=== PATIENT | female | born 1970 | race Caucasian/White ===

== ENCOUNTER → 2016-05-08 | Outpatient (REF) | payer OTHER | LOC: M SFHCPLAZ 13:40 | PROVIDERS: ATTEND Family Medicine | DX: E11.9 Type 2 diabetes mellitus without complications (principal); E78.5 Hyperlipidemia, unspecified; E55.9 Vitamin D deficiency, unspecified ==

== ENCOUNTER → 2016-07-06 | Outpatient (CLI) | payer OTHER ==
--- NOTE | 2016-07-06 14:53 | REP ---
CT RIGHT HIP: Axial CT images are performed of the right hip without IV contrast with sagittal and coronal reconstruction images. There is no acute fracture or dislocation. There is a small bone island in the right femoral head anteriorly. There is no avascular necrosis or other evidence of significant bone lesion. There is mild narrowing, spurring, and subchondral sclerosis and cystic change at the pubic symphysis. There is mild joint space narrowing, subchondral sclerosis, and spurring at the hip joint. There is a mildly enlarged right inguinal lymph node with a short-axis dimension of 1.2 cm. No other definite abnormality is seen. IMPRESSION: Mild degenerative changes pubic symphysis and right hip without evidence of fracture. Small bone island femoral head without other suspicious intrinsic osseous pathology. Mild enlarged right inguinal lymph node with short-axis dimension 1.2 cm. Signed by Vidal Huddleston MD 07/06/2016 08:34 P
== END ==
LOC: M RAD 13:08
PROVIDERS: ATTEND Family Medicine
DX: M16.11 Unilateral primary osteoarthritis, right hip (principal)

== ENCOUNTER → 2016-09-07 | Outpatient (CLI) | payer OTHER ==
--- NOTE | 2016-09-07 16:04 | REPMRS ---
Patient History The patient states she has not had a clinical breast exam in over a year. Patient is postmenopausal. Family history of breast cancer in 2 maternal cousins at age 50 or over. Digital Woman Screen Mammo: September 07, 2016 - Exam #: [id number] Bilateral CC and MLO view(s) were taken. Technologist: Nirmala Mckenna, Technologist Prior study comparison: November 12, 2014, digital woman screen mammo performed at [facility] to [facility]. October 23, 2013, digital woman screen mammo performed at [facility] to [facility]. FINDINGS: There are scattered fibroglandular densities. There has been no change in the appearance of the mammogram from the prior studies. There is a mild amount of residual fibroglandular tissue which is fairly symmetric. There is no interval development of dominant mass, architectural distortion, or clustered microcalcification suggestive of malignancy. ASSESSMENT: BI-RADS/ACR category 1 mammogram. Negative. Recommendation Routine screening mammogram in 1 year (for women over age 40). This mammogram was interpreted with the aid of an FDA-approved computer-aided dectection system. Electronically Signed By: Vidal Huddleston MD 09/07/16 [id number]
== END ==
LOC: M WHC 14:59
PROVIDERS: ATTEND Family Medicine
DX: Z12.31 Encounter for screening mammogram for malignant neoplasm of breast (principal)

== ENCOUNTER → 2016-09-10 | Outpatient (REF) | payer OTHER ==
[2016-09-10 12:30] LABS: ALBUMIN 3.6 GM/DL (3.2-5.2); ALBUMIN/GLOBULIN RATIO 0.92 (1.00-1.93); ALKALINE PHOSPHATASE 100 U/L (45-117); ALT/SGPT 49 U/L (12-78); ANION GAP 9 MEQ/L (8-16); AST/SGOT 26 U/L (15-37); BILIRUBIN,TOTAL 0.2 MG/DL (0.2-1.0); BLOOD UREA NITROGEN 16 MG/DL (7-18); CALCIUM LEVEL 8.9 MG/DL (8.5-10.1); CARBON DIOXIDE LEVEL 25 MEQ/L (21-32); CHLORIDE LEVEL 102 MEQ/L (98-107); CHOLESTEROL LEVEL 216 MG/DL (<200); CREATININE FOR GFR 0.81 MG/DL (0.55-1.02); GLOMERULAR FILTRATION RATE > 60.0 (>58); GLUCOSE, FASTING 280 MG/DL (70-105); POTASSIUM SERUM 4.3 MEQ/L (3.5-5.1); SODIUM LEVEL 136 MEQ/L (136-145); TOTAL PROTEIN 7.5 GM/DL (6.4-8.2); TRIGLYCERIDES LEVEL 527 MG/DL (<150)
== END ==
LOC: M SFHCPLAZ 08:48
PROVIDERS: ATTEND Family Medicine
DX: E78.5 Hyperlipidemia, unspecified (principal); E11.8 Type 2 diabetes mellitus with unspecified complications

== ENCOUNTER → 2016-12-31 | Outpatient (REF) | payer OTHER | LOC: M SFHCPLAZ 13:11 | PROVIDERS: ATTEND Family Medicine | DX: D72.829 Elevated white blood cell count, unspecified (principal); E11.8 Type 2 diabetes mellitus with unspecified complications ==

== ENCOUNTER → 2017-04-04 | Outpatient (REF) | payer OTHER ==
[2017-04-04 20:27] LABS: ALBUMIN 3.9 GM/DL (3.2-5.2); ALBUMIN/GLOBULIN RATIO 1.08 (1.00-1.93); ALKALINE PHOSPHATASE 104 U/L (45-117); ALT/SGPT 37 U/L (12-78); ANION GAP 6 MEQ/L (8-16); AST/SGOT 17 U/L (7-37); BILIRUBIN,TOTAL 0.2 MG/DL (0.2-1.0); BLOOD UREA NITROGEN 15 MG/DL (7-18); CALCIUM LEVEL 8.9 MG/DL (8.5-10.1); CARBON DIOXIDE LEVEL 28 MEQ/L (21-32); CHLORIDE LEVEL 106 MEQ/L (98-107); CHOLESTEROL LEVEL 238 MG/DL (<200); CREATININE FOR GFR 0.86 MG/DL (0.55-1.02); FERRITIN 94 NG/ML (8-252); GLOMERULAR FILTRATION RATE > 60.0 (>58); GLUCOSE, FASTING 125 MG/DL (70-105); PERCENT SATURATION 15.3 % (13.2-45.0); POTASSIUM SERUM 4.3 MEQ/L (3.5-5.1); SODIUM LEVEL 140 MEQ/L (136-145); TOTAL IRON BINDING CAPACITY 327 UG/DL (250-450); TOTAL PROTEIN 7.5 GM/DL (6.4-8.2); TRIGLYCERIDES LEVEL 269 MG/DL (<150)
[2017-04-05 11:32] LABS: PRETREATED FOLATE FOR RBCFOL 9.8 NG/ML
[2017-04-08 14:00] LABS: ALBUMIN 4.38 GM/DL (3.29-5.55); ALBUMIN % 58.4 % (55.8-66.1)
== END ==
LOC: M SFHCPLAZ 14:36
PROVIDERS: ATTEND Family Medicine
DX: E78.5 Hyperlipidemia, unspecified (principal); E11.8 Type 2 diabetes mellitus with unspecified complications; D72.829 Elevated white blood cell count, unspecified; E55.9 Vitamin D deficiency, unspecified; L92.1 Necrobiosis lipoidica, not elsewhere classified

== ENCOUNTER 2017-04-12 20:58 | Emergency (ER) | payer OTHER ==
[~2017-04-12] VITALS: Ht 177.8 cm; Wt 90.0 kg
[2017-04-12] MEDS ORDERED: TOUJ1.2I (21:07)
[2017-04-12] MEDS ORDERED: CELE1CAP9 (21:07)
[2017-04-12] MEDS ORDERED: METF500T4 (21:07)
[2017-04-12] MEDS ORDERED: TANZ1INJ2 (21:07)
[2017-04-12] MEDS ORDERED: TRAM50TA2 (21:07)
[2017-04-12] MEDS ORDERED: traMADol 50 MG TAB PO ONE (21:15)
[2017-04-12 22:36] VITALS: BP 137/72
--- NOTE | 2017-04-13 12:05 | REP ---
REASON: Trauma. COMPARISON: None. AP and lateral views of the forearm show a radial head fracture. IMPRESSION: Radial head fracture. Signed by Travis Flores DO 04/13/2017 08:53 A
--- NOTE | 2017-04-13 12:05 | REP ---
REASON: Trauma. There is a radial head fracture and a joint effusion. The radial head fracture is intra-articular. IMPRESSION: Radial head fracture and joint effusion as described above. Signed by Travis Flores DO 04/13/2017 08:54 A
--- NOTE | 2017-04-13 12:05 | REP ---
REASON: Trauma. COMPARISON: None. Two views were obtained. FINDINGS: No acute fracture or destructive osseous lesion. Please see the elbow report. Signed by Travis Flores DO 04/13/2017 08:54 A
== END 2017-04-12 22:37 | disposition home or self-care (01) ==
LOC: M ED 20:58
DX: S40.021A Contusion of right upper arm, initial encounter (principal); S50.11XA Contusion of right forearm, initial encounter; S60.211A Contusion of right wrist, initial encounter; W19.XXXA Unspecified fall, initial encounter; Y92.481 Parking lot as the place of occurrence of the external cause; Y93.01 Activity, walking, marching and hiking; Y99.8 Other external cause status; E11.9 Type 2 diabetes mellitus without complications; Z88.8 Allergy status to other drugs, medicaments and biological substances; Z79.4 Long term (current) use of insulin

== ENCOUNTER → 2017-07-12 | Outpatient (REF) | payer OTHER ==
[2017-07-12 15:43] LABS: HEMATOCRIT 43.2 % (36.0-47.0); HEMOGLOBIN 14.4 g/dl (12.0-16.0); MEAN CORPUSCULAR HEMOGLOBIN 29.3 pg (27.0-33.0); MEAN CORPUSCULAR HGB CONC 33.3 g/dl (32.0-36.5); PLATELET COUNT, AUTOMATED 363 10^3/uL (150-450); RED BLOOD COUNT 4.91 10^6/uL (4.00-5.40); RED CELL DISTRIBUTION WIDTH 13.2 % (11.5-14.5)
[2017-07-12 15:44] LABS: ADD MANUAL DIFFER YES; DIFF SLIDE NUMBER 236; POSITIVE DIFF POS FLAG; POSITIVE MORPH POS FLAG; WHITE BLOOD COUNT 19.9 10^3/uL (4.0-10.0)
[2017-07-12 15:55] LABS: INR 0.94; PROTHROMBIN TIME 12.6 SECONDS (12.4-14.5)
[2017-07-12 15:56] LABS: PARTIAL THROMBOPLASTIN TIME 33.5 SECONDS (26.8-37.9)
[2017-07-12 16:07] LABS: ALBUMIN 4.4 GM/DL (3.2-5.2); ALBUMIN/GLOBULIN RATIO 1.26 (1.00-1.93); ALKALINE PHOSPHATASE 102 U/L (45-117); ALT/SGPT 43 U/L (12-78); ANION GAP 8 MEQ/L (8-16); AST/SGOT 19 U/L (7-37); BILIRUBIN,TOTAL 0.3 MG/DL (0.2-1.0); BLOOD UREA NITROGEN 17 MG/DL (7-18); C REACTIVE PROTEIN QUANTITATIV 0.67 MG/DL (0.00-0.30); CALCIUM LEVEL 9.3 MG/DL (8.5-10.1); CARBON DIOXIDE LEVEL 26 MEQ/L (21-32); CHLORIDE LEVEL 102 MEQ/L (98-107); CHOLESTEROL LEVEL 273 MG/DL (<200); CHOLESTEROL RISK RATIO 8.531 (<5); CREATININE FOR GFR 0.84 MG/DL (0.55-1.30); GLOMERULAR FILTRATION RATE > 60.0 (>58); GLUCOSE, FASTING 204 MG/DL (70-100); HDL CHOLESTEROL 32 MG/DL (>40); NON-HDL-C 241 MG/DL; POTASSIUM SERUM 4.6 MEQ/L (3.5-5.1); SODIUM LEVEL 136 MEQ/L (136-145); TOTAL PROTEIN 7.9 GM/DL (6.4-8.2); TRIGLYCERIDES LEVEL 420 MG/DL (<150)
[2017-07-12 16:23] LABS: ATYPICAL LYMPH 3 % (0-5); BANDS 1 % (< 11); BASOPHILS 2 % (0-4); EOSINOPHILS 2 % (0-5); LYMPHOCYTES 29 % (16-52); MONOCYTES 1 % (0-8); NEUTROPHILS 62 % (35-75); PLATELET ESTIMATE NORMAL (NORMAL)
== END ==
LOC: M SFHCPLAZ 13:04
DX: D72.829 Elevated white blood cell count, unspecified (principal); E11.8 Type 2 diabetes mellitus with unspecified complications; E78.5 Hyperlipidemia, unspecified

== ENCOUNTER → 2018-02-11 | Outpatient (REF) | payer OTHER ==
[2018-02-11 15:58] LABS: HEMATOCRIT 43.5 % (36.0-47.0); HEMOGLOBIN 14.5 g/dl (12.0-15.5); MEAN CORPUSCULAR HGB CONC 33.3 g/dl (32.0-36.5); PLATELET COUNT, AUTOMATED 351 10^3/uL (150-450); RED CELL DISTRIBUTION WIDTH 13.5 % (11.5-14.5)
[2018-02-11 16:06] LABS: ADD MANUAL DIFFER YES; DIFF SLIDE NUMBER 302; POSITIVE DIFF POS FLAG; WHITE BLOOD COUNT 16.6 10^3/uL (4.0-10.0)
[2018-02-11 16:22] LABS: ATYPICAL LYMPH 13 % (0-5); EOSINOPHILS 2 % (0-5); LYMPHOCYTES 22 % (16-52); MONOCYTES 5 % (0-8); NEUTROPHILS 58 % (35-75); PLATELET ESTIMATE NORMAL (NORMAL)
[2018-02-11 16:33] LABS: ALBUMIN/GLOBULIN RATIO 1.11 (1.00-1.93); ALKALINE PHOSPHATASE 98 U/L (45-117); ALT/SGPT 44 U/L (12-78); ANION GAP 9 MEQ/L (8-16); AST/SGOT 20 U/L (7-37); BILIRUBIN,TOTAL 0.4 MG/DL (0.2-1.0); BLOOD UREA NITROGEN 16 MG/DL (7-18); C REACTIVE PROTEIN QUANTITATIV 0.96 MG/DL (0.00-0.30); CALCIUM LEVEL 9.4 MG/DL (8.5-10.1); CARBON DIOXIDE LEVEL 26 MEQ/L (21-32); CHLORIDE LEVEL 105 MEQ/L (98-107); CHOLESTEROL LEVEL 287 MG/DL (<200); CHOLESTEROL RISK RATIO 9.258 (<5); CPK CREATINE PHOSPHOKINASE 254 U/L (26-192); CREATININE FOR GFR 0.81 MG/DL (0.55-1.30); FREE T4 1.18 NG/DL (0.76-1.46); GLOMERULAR FILTRATION RATE > 60.0 (>58); GLUCOSE, FASTING 182 MG/DL (70-100); HDL CHOLESTEROL 31 MG/DL (>40); LDL CHOLESTEROL 190 MG/DL (<100); NON-HDL-C 256 MG/DL; POTASSIUM SERUM 4.7 MEQ/L (3.5-5.1); SODIUM LEVEL 140 MEQ/L (136-145); TOTAL PROTEIN 7.6 GM/DL (6.4-8.2); TRIGLYCERIDES LEVEL 330 MG/DL (<150)
[2018-02-11 18:00] LABS: ESTIMATED AVERAGE GLUCOSE 252 MG/DL (60-110); HEMOGLOBIN A1c 10.4 %
== END ==
LOC: M SFHCPLAZ 12:59
DX: E11.8 Type 2 diabetes mellitus with unspecified complications (principal); D72.829 Elevated white blood cell count, unspecified; E78.5 Hyperlipidemia, unspecified

== ENCOUNTER 2018-10-07 12:33 | Emergency (ER) | payer OTHER ==
[~2018-10-07] VITALS: Ht 177.8 cm; Wt 91.9 kg
[~2018-10-07 12:33] MED LIST: CELE1CAP9; METF500T4; TANZ1INJ2; TOUJ1.2I; TRAM50TA2
--- NOTE | 2018-10-07 14:17 | REP ---
CHEST, TWO VIEWS: Two views of the chest are performed and compared to prior study of 07/22/2018. There is bibasilar fibroatelectatic change without evidence of acute infiltrate. The heart is not enlarged. The mediastinal silhouette is unchanged since prior study of 07/22/2018. The visualized osseous structures appear intact. IMPRESSION: Bibasilar fibroatelectatic changes. Electronically Signed by Vidal Huddleston MD 10/09/2018 08:36 A
--- NOTE | 2018-10-07 14:24 | REP ---
Unilateral left ribs, four views History: Chest pain There is no fracture or bone lesion. A minimal increase in interstitial markings is present in the left lower lobe consistent with chronic interstitial change. Impression: No acute disease. Electronically Signed by Abimael Harrell MD 10/07/2018 02:15 P
[2018-10-07] MEDS ORDERED: NAPR-837 PO (14:36)
[2018-10-07] MEDS ORDERED: SOMA350T PO (14:36)
[2018-10-07 14:52] VITALS: BP 127/64
== END 2018-10-07 14:59 | disposition home or self-care (01) ==
LOC: M ED 12:33
DX: S29.011A Strain of muscle and tendon of front wall of thorax, initial encounter (principal); X50.0XXA Overexertion from strenuous movement or load, initial encounter; Y92.89 Other specified places as the place of occurrence of the external cause; E11.9 Type 2 diabetes mellitus without complications; I10 Essential (primary) hypertension; E78.5 Hyperlipidemia, unspecified; F17.200 Nicotine dependence, unspecified, uncomplicated; Z88.8 Allergy status to other drugs, medicaments and biological substances; Z79.899 Other long term (current) drug therapy; Z79.4 Long term (current) use of insulin

== ENCOUNTER → 2019-03-23 | Outpatient (REF) | payer OTHER ==
[~2019-03-23] MED LIST changes: +METF-791; -METF500T4; +NAPR-837 PO; +SOMA350T PO
== END ==
LOC: M SFHCPLAZ 14:17
PROVIDERS: ATTEND Physician Assistant Medical
DX: D72.829 Elevated white blood cell count, unspecified (principal); E11.8 Type 2 diabetes mellitus with unspecified complications; E78.5 Hyperlipidemia, unspecified; E55.9 Vitamin D deficiency, unspecified

== ENCOUNTER → 2019-08-06 | Outpatient (REF) | payer OTHER ==
[2019-08-06 17:52] LABS: APPEARANCE, URINE CLEAR (CLEAR); BACTERIA, URINE AUTO NEGATIVE (NEGATIVE); BILIRUBIN, URINE AUTO NEGATIVE (NEGATIVE); BLOOD, URINE BLOOD NEGATIVE (NEGATIVE); COLOR, URINE YELLOW (YELLOW); GLUCOSE, URINE (UA) AUTO 3+ mg/dL (NEGATIVE); KETONE, URINE AUTO NEGATIVE (NEGATIVE); LEUKOCYTE ESTERASE, URINE AUTO NEGATIVE (NEGATIVE); MUCUS, URINE SMALL (NEGATIVE); NITRITE, URINE AUTO NEGATIVE (NEGATIVE); PROTEIN, URINE AUTO NEGATIVE (NEGATIVE); RBC, URINE AUTO 4 /HPF (0-3); SPECIFIC GRAVITY URINE AUTO 1.029 (1.002-1.035); SQUAMOUS EPITHELIAL CELL UR AU 1 /HPF (0-6); UROBILINOGEN, URINE AUTO 0.2 mg/dL (0.0-2.0); WBC, URINE AUTO 1 /HPF (0-3)
[2019-08-06 18:06] LABS: BASO # 0.1 10^3/uL (0.0-0.2); BASO % 0.7 % (0.0-1.0); EOS # 0.3 10^3/uL (0.0-0.5); EOS % 1.8 % (0.0-3.0); HEMATOCRIT 45.6 % (36.0-47.0); HEMOGLOBIN 14.9 g/dl (12.0-15.5); LYMPH % 40.8 % (24.0-44.0); MEAN CORPUSCULAR HGB CONC 32.7 g/dl (32.0-36.5); MEAN CORPUSCULAR VOLUME 88.7 fl (80.0-96.0); MONO # 0.6 10^3/uL (0.0-0.8); MONO % 4.3 % (0.0-5.0); NEUTROPHILS # 7.5 10^3/uL (1.5-8.5); NEUTROPHILS % 52.1 % (36.0-66.0); PLATELET COUNT, AUTOMATED 353 10^3/uL (150-450); RED BLOOD COUNT 5.14 10^6/uL (4.00-5.40)
[2019-08-06 18:09] LABS: LYMPH # 5.8 10^3/uL (1.5-5.0); WHITE BLOOD COUNT 14.3 10^3/uL (4.0-10.0)
[2019-08-06 18:15] LABS: ALBUMIN 4.1 GM/DL (3.2-5.2); ALT/SGPT 27 U/L (12-78); BILIRUBIN,TOTAL 0.3 MG/DL (0.2-1.0); BLOOD UREA NITROGEN 15 MG/DL (7-18); CALCIUM LEVEL 9.7 MG/DL (8.5-10.1); CARBON DIOXIDE LEVEL 24 MEQ/L (21-32); CHLORIDE LEVEL 110 MEQ/L (98-107); CHOLESTEROL LEVEL 244 MG/DL (<200); CREATININE FOR GFR 0.79 MG/DL (0.55-1.30); FREE T4 1.08 NG/DL (0.76-1.46); GLOMERULAR FILTRATION RATE > 60.0 (>58); GLUCOSE, FASTING 76 MG/DL (70-100); HDL CHOLESTEROL 31 MG/DL (>40); LDH LACTATE DEHYDROGENASE 157 U/L (84-246); LDL CHOLESTEROL 158 MG/DL (<100); NON-HDL-C 213 MG/DL; POTASSIUM SERUM 4.2 MEQ/L (3.5-5.1); SODIUM LEVEL 138 MEQ/L (136-145); TOTAL PROTEIN 7.8 GM/DL (6.4-8.2); TRIGLYCERIDES LEVEL 275 MG/DL (<150)
[2019-08-06 18:35] LABS: HEMOGLOBIN A1c 9.6 %
[2019-08-06 18:40] LABS: MALB URINE SIEMENS 26.8 MG/L; MAU/CREAT RATIO 21.6 MCG/MG (0.0-30.0)
== END ==
LOC: M SFHCPLAZ 14:19
PROVIDERS: ATTEND Family Medicine
DX: D72.829 Elevated white blood cell count, unspecified (principal); E78.5 Hyperlipidemia, unspecified

== ENCOUNTER → 2019-08-13 | Outpatient (CLI) | payer OTHER ==
--- NOTE | 2019-08-13 14:04 | REP ---
CAROTID ULTRASOUND: Real-time ultrasound evaluation and duplex Doppler interrogation of the extracranial carotid vasculature is performed. There is mild plaquing and narrowing in both carotid bulbs extending into the internal and external carotid arteries. Luminal narrowing is less than 50%. There is no evidence of hemodynamically significant stenosis of either internal carotid artery. Normal flow velocities are seen. The vertebral arteries demonstrate normal direction of flow. RIGHT LEFT Peak systolic velocity ICA 49.6 cm/s 81.0 cm/s End diastolic velocity ICA 16.2 cm/s 29.6 cm/s Peak systolic velocity CCA 78.7 cm/s 67.6 cm/s Peak systolic velocity ECA 50.6 cm/s 85.6 cm/s ICA/CCA ratio 0.63 1.2 IMPRESSION: Bilateral luminal narrowing of the internal carotid arteries less than 50%. No evidence of hemodynamically significant stenosis. A heterogeneous nodule is seen in the left lobe of the thyroid gland to 2.7 x 1.9 x 1.5 cm. This demonstrates no suspicious features. Electronically Signed by Vidal Huddleston MD 08/13/2019 01:55 P
== END ==
LOC: M RAD 13:17
PROVIDERS: ATTEND Family Medicine
DX: E04.1 Nontoxic single thyroid nodule (principal); I77.9 Disorder of arteries and arterioles, unspecified; R09.89 Other specified symptoms and signs involving the circulatory and respiratory systems

== ENCOUNTER → 2020-03-29 | Outpatient (CLI) | payer OTHER ==
[~2020-03-29] MED LIST changes: -METF-791; +METF-838
--- NOTE | 2020-03-29 15:01 | REP ---
INDICATION: THYROID NODULE COMPARISON: None. TECHNIQUE: Huddleston scale evaluation of the thyroid gland using the linear high frequency transducer. FINDINGS: Right thyroid lobe appears normal and measures 4.9 x 1.7 x 1.7 cm. Isthmus measures 2.7 mm in width. Left lobe measures 4.4 x 2.0 x 2.4 cm and includes 2.9 x 2.1 x 2.0 cm complex mid to lower pole nodule of indeterminate appearance by ultrasound IMPRESSION: Complex indeterminate solitary nodule in the left thyroid lobe. <Electronically signed by Mati Stapleton > 03/29/20 [id number]
== END ==
LOC: M RAD 14:01
PROVIDERS: ATTEND Family Medicine
DX: E04.1 Nontoxic single thyroid nodule (principal)

== ENCOUNTER → 2020-04-25 | Outpatient (CLI) | payer OTHER ==
[~2020-04-25] MED LIST changes: -CELE1CAP9; +CELE1CAP9 PO; +LIDOCAINE 1% MDV 20ML VIAL As Ordered ONE; -METF-838; +METF-838 PO; +SODIUM BICARBONATE 8.4% INJ 50MEQ 50 ML VIAL As Ordered ONE
[2020-04-25 10:06] VITALS: BP 143/79
== END ==
LOC: M IRPRO 09:41
PROVIDERS: ATTEND Family Medicine
DX: E04.1 Nontoxic single thyroid nodule (principal); Z53.9 Procedure and treatment not carried out, unspecified reason

== ENCOUNTER → 2020-09-14 | Outpatient (CLI) | payer OTHER ==
[~2020-09-14] MED LIST changes: -LIDOCAINE 1% MDV 20ML VIAL As Ordered ONE; -SODIUM BICARBONATE 8.4% INJ 50MEQ 50 ML VIAL As Ordered ONE
--- NOTE | 2020-09-14 11:21 | REP ---
INDICATION: THYROID NODULE COMPARISON: 03/29/2020 TECHNIQUE: Huddleston scale and color evaluation of the thyroid gland using the linear high frequency transducer. FINDINGS: Thyroid gland is relatively normal in contour, size, and overall parenchymal echotexture. Right lobe measures 4.6 x 2.2 x 2.1 cm without cyst or nodule. Left lobe measures 4.9 x 2.2 x 2.8 cm and includes 2.7 x 2.3 x 1.7 cm complex isoechoic nodule similar to prior examination. Isthmus measures 3.4 mm in width.. IMPRESSION: Relatively stable complex nodule in the left thyroid lobe. Finding is indeterminate. Consider FNA for definitive evaluation. <Electronically signed by Mati Stapleton > 09/14/20 [id number]
== END ==
LOC: M RAD 10:44
PROVIDERS: ATTEND Family Medicine
DX: E04.1 Nontoxic single thyroid nodule (principal)

== ENCOUNTER → 2020-11-21 | Outpatient (CLI) | payer OTHER ==
--- NOTE | 2020-11-21 15:34 | REP ---
INDICATION: PAIN. COMPARISON: Comparison radiographs of the right foot are from December 12, 2010.. TECHNIQUE: Four views of the right foot are presented. FINDINGS: Four views of the right foot demonstrate somewhat decreased overall mineralization. A mild hallux valgus deformity is seen. There is mild joint space narrowing and early spur formation at the 1st MTP joint.. No fracture or subluxation is seen. No opaque foreign body noted. 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 Otherwise negative.. <Electronically signed by Pacheco Orellana > 11/21/20 [id number]
== END ==
LOC: M WUC 13:17
PROVIDERS: ATTEND Family Medicine
DX: M79.671 Pain in right foot (principal); M19.041 Primary osteoarthritis, right hand

== ENCOUNTER → 2021-09-04 | Outpatient (CLI) | payer OTHER ==
[~2021-09-04] MED LIST changes: +ADLY20IN SC; +ASPI81TA26 PO; +ATOR80TA59 PO; +BASA100I SC; +ERGO500029 PO; +EZET10TA21 PO; +FENO200C19 PO; +LORA-243 PO; +MONT10TA97 PO; +NO ITAB PO; +STEG15TA PO
== END ==
LOC: M LABSMTC 09:38
PROVIDERS: ATTEND Anesthesiology
DX: Z01.812 Encounter for preprocedural laboratory examination (principal); Z20.822 Contact with and (suspected) exposure to COVID-19

== ENCOUNTER 2021-09-08 07:47 | Day surgery (SDC) | payer OTHER ==
[~2021-09-08] VITALS: Ht 177.8 cm; Wt 87.9 kg
[~2021-09-08 07:47] MED LIST changes: +LIDOCAINE W/EPINEPHRINE 1% 20ML VIAL As Ordered ONE; +LR 1,000 ML IV ONE
[2021-09-08] MEDS ORDERED: OXYMETAZOLINE 0.05% NASAL SPRAY (AFRIN) As Ordered ONE (08:07)
[2021-09-08] MEDS ORDERED: HumaLOG INSULIN (NovoLOG) PER UNIT SC ONE ×2 (09:35→12:05)
[2021-09-08] MEDS ORDERED: SCOPOLAMINE 1MG TRANSDERMAL PATCH TOP ONE (09:35)
[2021-09-08] MEDS ORDERED: propofoL 200 MG/20 ML VIAL As Ordered ONE (09:56)
[2021-09-08] MEDS ORDERED: MIDAZOLAM INJ 2MG/2ML VIAL (J2250 PER 1MG) As Ordered ONE (09:56)
[2021-09-08] MEDS ORDERED: LIDOCAINE 2% 100MG/5ML SDV (FOR ANES.) As Ordered ONE (09:56)
[2021-09-08] MEDS ORDERED: dexameTHASONE 4 MG/ML 1ML VIAL (J1100 PER 1MG) As Ordered ONE (09:56)
[2021-09-08] MEDS ORDERED: SUGAMMADEX SODIUM 500 MG/5 ML VIAL (BRIDION) As Ordered ONE (09:56)
[2021-09-08] MEDS ORDERED: ROCURONIUM BROMIDE 50 MG/5 ML VIAL As Ordered ONE (09:56)
[2021-09-08] MEDS ORDERED: ONDANSETRON 4MG/2ML VIAL As Ordered ONE (09:56)
[2021-09-08] MEDS ORDERED: fentaNYL 100 MCG/2 ML INJECTION As Ordered ONE ×2 (09:57→10:41)
[2021-09-08] MEDS ORDERED: ACETAMINOPHEN 1000MG 100ML IV BTL (OFIRMEV) (J0131 PER 10MG) As Ordered ONE (10:37)
[2021-09-08] MEDS ORDERED: METOCLOPRAMIDE INJ 10MG/2ML VIAL (J2765 PER 1) IV PRN (11:20)
[2021-09-08] MEDS ORDERED: ONDANSETRON 4MG/2ML VIAL IV PRN (11:20)
[2021-09-08] MEDS ORDERED: LR 1,000 ML IV SCH ×2 (11:20→11:25)
[2021-09-08] MEDS: PERCOCET 5MG/325MG TAB PO PRN ×2 (12:16→12:48)
[2021-09-08] MEDS: fentaNYL 100 MCG/2 ML INJECTION IV PRN ×4 (12:17→13:00)
[2021-09-08] MEDS ORDERED: diphenhydrAMINE 50MG/ML VIAL (J1200) IV PRN (14:50)
[2021-09-08 15:37] VITALS: BP 118/57
== END 2021-09-08 15:52 | disposition home or self-care (01) ==
LOC: M SDC 07:47
PROVIDERS: ATTEND Dentist Oral and Maxillofacial Surgery
DX: K02.9 Dental caries, unspecified (principal); E11.9 Type 2 diabetes mellitus without complications; E04.9 Nontoxic goiter, unspecified; K21.9 Gastro-esophageal reflux disease without esophagitis; F32.9 Major depressive disorder, single episode, unspecified; Z88.8 Allergy status to other drugs, medicaments and biological substances; Z79.899 Other long term (current) drug therapy; J45.909 Unspecified asthma, uncomplicated; G47.33 Obstructive sleep apnea (adult) (pediatric); Z79.4 Long term (current) use of insulin
CPT/HCPCS: 88300; D7210; D9223; J0131; J1100; J1200; J1815; J2250; J2405; J2765; J3010

== ENCOUNTER → 2022-05-16 | Outpatient (CLI) | payer OTHER ==
[~2022-05-16] MED LIST changes: -FENO200C19 PO; +FENO200C24 PO; -LIDOCAINE W/EPINEPHRINE 1% 20ML VIAL As Ordered ONE; -LR 1,000 ML IV ONE
== END ==
LOC: M WUC 14:59
PROVIDERS: ATTEND Nurse Practitioner Family
DX: M54.50 Low back pain, unspecified (principal); M47.817 Spondylosis without myelopathy or radiculopathy, lumbosacral region

== ENCOUNTER → 2022-09-19 | Outpatient (REF) | payer OTHER ==
[2022-09-19 18:06] LABS: CREATININE, URINE 38.7 MG/DL; MAU/CREAT RATIO 25.8 MCG/MG (0.0-30.0)
== END ==
LOC: M LAB REF 17:11
PROVIDERS: ATTEND Nurse Practitioner Family
DX: E11.65 Type 2 diabetes mellitus with hyperglycemia (principal)

== ENCOUNTER → 2023-01-01 | Outpatient (CLI) | payer OTHER | LOC: M RAD 08:35 | PROVIDERS: ATTEND Registered Nurse | DX: R94.5 Abnormal results of liver function studies (principal); K82.4 Cholesterolosis of gallbladder; N28.1 Cyst of kidney, acquired; K76.0 Fatty (change of) liver, not elsewhere classified; N28.89 Other specified disorders of kidney and ureter ==

== ENCOUNTER → 2023-04-05 | Outpatient (CLI) | payer OTHER ==
[~2023-04-05] MED LIST changes: +CELE0.09 PO; -CELE1CAP9 PO
[2023-04-05 19:02] LABS: BLOOD UREA NITROGEN 14 MG/DL (9-23); CALCIUM LEVEL 9.1 MG/DL (8.5-10.1); CARBON DIOXIDE LEVEL 26 MMOL/L (20-31); CHLORIDE LEVEL 101 MMOL/L (98-107); CREATININE FOR GFR 0.68 MG/DL (0.55-1.30); GLOMERULAR FILTRATION RATE > 60.0 (>51); GLUCOSE, FASTING 351 MG/DL (60-100); POTASSIUM SERUM 3.8 MMOL/L (3.5-5.1); SODIUM LEVEL 136 MMOL/L (136-145)
== END ==
LOC: M WUC 15:25
PROVIDERS: ATTEND Urology
DX: D41.01 Neoplasm of uncertain behavior of right kidney (principal)

== ENCOUNTER → 2023-06-28 | Outpatient (CLI) | payer OTHER | LOC: M WHC 08:38 | PROVIDERS: ATTEND Registered Nurse | DX: R93.2 Abnormal findings on diagnostic imaging of liver and biliary tract (principal); K76.0 Fatty (change of) liver, not elsewhere classified ==

== ENCOUNTER 2023-10-18 14:43 | Emergency (ER) | payer OTHER ==
[~2023-10-18] VITALS: Ht 177.8 cm; Wt 83.2 kg
[2023-10-18] MEDS ORDERED: ROSU40TA63 (14:57)
[2023-10-18 16:10] LABS: BASO # 0.1 10^3/uL (0.0-0.2); BASO % 0.4 % (0.0-1.0); EOS % 0.3 % (0.0-3.0); HEMATOCRIT 44.3 % (36.0-47.0); HEMOGLOBIN 14.9 g/dl (12.0-15.5); LYMPH % 23.4 % (24.0-44.0); MEAN CORPUSCULAR HEMOGLOBIN 28.7 pg (27.0-33.0); MEAN CORPUSCULAR HGB CONC 33.6 g/dl (32.0-36.5); MEAN CORPUSCULAR VOLUME 85.4 fl (80.0-96.0); MONO # 0.6 10^3/uL (0.0-0.8); MONO % 4.9 % (2.0-8.0); NEUTROPHILS # 9.1 10^3/uL (1.5-8.5); NEUTROPHILS % 70.8 % (36.0-66.0); PLATELET COUNT, AUTOMATED 338 10^3/uL (150-450); RED BLOOD COUNT 5.19 10^6/uL (4.00-5.40); WHITE BLOOD COUNT 12.8 10^3/uL (4.0-10.0)
[2023-10-18 16:36] LABS: LIPASE 18 U/L (12-53)
[2023-10-18 16:38] LABS: ALBUMIN 3.8 G/DL (3.2-5.2); ALKALINE PHOSPHATASE 105 U/L (46-116); ALT/SGPT 29 U/L (7.0-40); AST/SGOT 12 U/L (<34); BILIRUBIN,DIRECT 0.1 MG/DL (<0.4); BILIRUBIN,TOTAL 0.7 MG/DL (0.3-1.2); BLOOD UREA NITROGEN 16 MG/DL (9-23); CALCIUM LEVEL 9.1 MG/DL (8.5-10.1); CARBON DIOXIDE LEVEL 24 MMOL/L (20-31); CHLORIDE LEVEL 101 MMOL/L (98-107); CREATININE FOR GFR 0.58 MG/DL (0.55-1.30); GLOMERULAR FILTRATION RATE > 60.0 (>51); GLUCOSE, FASTING 242 MG/DL (60-100); POTASSIUM SERUM 4.1 MMOL/L (3.5-5.1); SODIUM LEVEL 133 MMOL/L (136-145)
[2023-10-18] MEDS ORDERED: ISOVUE-370 76% 100ML VIAL As Ordered ONE (18:40)
[2023-10-18] MEDS: ONDANSETRON 4MG ORAL DISINTEGRATING TAB PO ONE (19:05)
[2023-10-18 20:02] VITALS: BP 116/68; TEMP 98.8; O2SAT 96
== END 2023-10-18 20:00 | disposition home or self-care (01) ==
LOC: M ED 14:43
DX: R10.9 Unspecified abdominal pain (principal); E11.9 Type 2 diabetes mellitus without complications; Z79.4 Long term (current) use of insulin; Z79.82 Long term (current) use of aspirin; Z79.899 Other long term (current) drug therapy; Z88.8 Allergy status to other drugs, medicaments and biological substances

== ENCOUNTER 2023-10-21 20:09 | Emergency (ER) | payer OTHER ==
[~2023-10-21] VITALS: Ht 177.8 cm; Wt 84.1 kg
[~2023-10-21 20:09] MED LIST changes: +ROSU40TA63
[2023-10-21 20:46] LABS: BASO # 0.1 10^3/uL (0.0-0.2); BASO % 0.4 % (0.0-1.0); EOS % 0.2 % (0.0-3.0); HEMATOCRIT 42.7 % (36.0-47.0); HEMOGLOBIN 14.8 g/dl (12.0-15.5); MEAN CORPUSCULAR HEMOGLOBIN 28.7 pg (27.0-33.0); MEAN CORPUSCULAR HGB CONC 34.7 g/dl (32.0-36.5); MEAN CORPUSCULAR VOLUME 82.8 fl (80.0-96.0); MONO # 0.9 10^3/uL (0.0-0.8); NEUTROPHILS # 7.9 10^3/uL (1.5-8.5); PLATELET COUNT, AUTOMATED 377 10^3/uL (150-450); RED BLOOD COUNT 5.16 10^6/uL (4.00-5.40); WHITE BLOOD COUNT 12.9 10^3/uL (4.0-10.0)
[2023-10-21 21:11] LABS: LIPASE 20 U/L (12-53)
[2023-10-21 21:13] LABS: ALBUMIN 3.6 G/DL (3.2-5.2); ALKALINE PHOSPHATASE 95 U/L (46-116); ALT/SGPT 23 U/L (7.0-40); AST/SGOT 10 U/L (<34); BILIRUBIN,DIRECT 0.2 MG/DL (<0.4); BILIRUBIN,TOTAL 0.8 MG/DL (0.3-1.2); BLOOD UREA NITROGEN 15 MG/DL (9-23); CALCIUM LEVEL 9.7 MG/DL (8.5-10.1); CARBON DIOXIDE LEVEL 24 MMOL/L (20-31); CHLORIDE LEVEL 98 MMOL/L (98-107); CREATININE FOR GFR 0.71 MG/DL (0.55-1.30); GLOMERULAR FILTRATION RATE > 60.0 (>51); GLUCOSE, FASTING 340 MG/DL (60-100); POTASSIUM SERUM 3.9 MMOL/L (3.5-5.1); SODIUM LEVEL 131 MMOL/L (136-145); TOTAL PROTEIN 7.1 G/DL (5.7-8.2)
[2023-10-21] MEDS ORDERED: ISOVUE-370 76% 100ML VIAL As Ordered ONE (22:41)
[2023-10-21] MEDS: NS 1,000 ML IV ONE (22:56)
[2023-10-21] MEDS: KETOROLAC 30 MG/ML 1ML VIAL IV ONE (22:59)
[2023-10-22] MEDS: MAGNESIUM CITRATE 300ML BTL PO ONE (01:50)
[2023-10-22 02:01] VITALS: BP 126/71; TEMP 97.8; O2SAT 98
== END 2023-10-22 02:00 | disposition home or self-care (01) ==
LOC: M ED 20:09
DX: K86.9 Disease of pancreas, unspecified (principal); K59.00 Constipation, unspecified; E11.9 Type 2 diabetes mellitus without complications; K21.9 Gastro-esophageal reflux disease without esophagitis; Z87.891 Personal history of nicotine dependence; Z79.82 Long term (current) use of aspirin; Z79.4 Long term (current) use of insulin; Z79.899 Other long term (current) drug therapy; Z88.8 Allergy status to other drugs, medicaments and biological substances
CPT/HCPCS: 74177; 80048; 80076; 81001; 83690; 85025; 96361; 96374; 99284; J1885; Q9967

== ENCOUNTER → 2023-11-21 | Outpatient (CLI) | payer OTHER | LOC: M PLAIMG 12:51 | PROVIDERS: ATTEND Registered Nurse | DX: Z53.9 Procedure and treatment not carried out, unspecified reason (principal) ==

== ENCOUNTER → 2024-03-18 | Outpatient (CLI) | payer OTHER ==
[~2024-03-18] MED LIST changes: -ROSU40TA63; +ROSU40TA81
== END ==
LOC: M WHC 12:16
PROVIDERS: ATTEND Registered Nurse
DX: Z12.31 Encounter for screening mammogram for malignant neoplasm of breast (principal)

== ENCOUNTER → 2024-08-11 | Outpatient (CLI) | payer OTHER | LOC: M RAD 07:10 | PROVIDERS: ATTEND Registered Nurse | DX: R93.5 Abnormal findings on diagnostic imaging of other abdominal regions, including retroperitoneum (principal); K80.20 Calculus of gallbladder without cholecystitis without obstruction; K76.0 Fatty (change of) liver, not elsewhere classified ==